=== PATIENT | female | born 1960 | race Caucasian/White ===

== ENCOUNTER 2016-11-26 20:32 | Emergency (ER) | payer BC, OTHER ==
[2016-11-26 20:43] VITALS: BP 154/73
--- NOTE | 2016-11-26 21:33 | UC ---
Complaint Female HPI - HPI Summary HPI Summary: 56 y/o female presents to the urgent care c/o burning, frequency and urgency on urination since yesterday. Pt took and old Rx of Doxycycline for 3 days about 3 weeks ago since she believe she has an UTI. However symptoms have returned. Pt denies back or flank pain, fever, SOB, chest pain, N/V/d. She has not taking any Azo to alleviate symptoms. - History Of Current Complaint Chief Complaint: UCGU Stated Complaint: URINARY Time Seen by Provider: 11/26/16 21:27 Hx Obtained From: Patient Hx Last Menstrual Period: 2008 ?: No Onset/Duration: Gradual Onset, Lasting Days, Still Present Timing: Constant, Lasting Days Severity Initially: Mild Severity Currently: Moderate Pain Intensity: 5 Pain Scale Used: 0-10 Numeric Character: Burning Aggravating Factor(s): Urination Alleviating Factor(s): Nothing Associated Signs And Symptoms: Negative: Fever, Back Pain, Vaginal Bleeding/ Discharge, Vaginal Discharge, Nausea, Vomiting(# Of Episodes =) - Risk Factors Ectopic Risk Factor: Negative Ovarian Torsion Risk Factor: Negative - Allergies/Home Medications Allergies/Adverse Reactions: Allergies Allergy/AdvReac Type Severity Reaction Status Date / Time Penicillins Allergy Intermediate Rash Verified 11/26/16 20:43 Home Medications: Home Medications Sertraline* [Zoloft*] 50 mg PO DAILY 11/26/16 [History Confirmed 11/26/16] PMH/Surg Hx/FS Hx/Imm Hx Previously Healthy: Yes Other GI/ History: overreactive blader Psychological History: Depression Other Psychological History: ADHD - Surgical History Surgical History: Yes Surgery Procedure, Year, and Place: OBLATION. Uterine ablation 2008. VARICOSE VEIN STRIPPING. ETOPIC - Family History Known Family History: Positive: None - Social History Occupation: Employed Full-time Lives: With Family Alcohol Use: None Substance Use Type: None Smoking Status (MU): Former Smoker When Did the Patient Quit Smoking/Using Tobacco: 30 YRS Review of Systems Constitutional: Negative Skin: Negative Eyes: Negative ENT: Negative Respiratory: Negative Cardiovascular: Negative Gastrointestinal: Negative Genitourinary: Dysuria, Frequency, Urgency Motor: Negative Neurovascular: Negative Musculoskeletal: Negative Neurological: Negative Psychological: Negative All Other Systems Reviewed And Are Negative: Yes Physical Exam Triage Information Reviewed: Yes Appearance: Well-Appearing, No Pain Distress, Well-Nourished, Obese Vital Signs: Initial Vital Signs Temp 99.4 F 11/26/16 20:35 Pulse 84 11/26/16 20:35 Resp 16 11/26/16 20:35 BP 154/73 11/26/16 20:35 Pulse Ox 100 11/26/16 20:35 Vital Signs Reviewed: Yes Eye Exam: Normal Eyes: Positive: Conjunctiva Clear - PERRLA, EOMI ENT Exam: Normal ENT: Positive: Normal ENT inspection, Hearing grossly normal, Pharynx normal, TMs normal Dental Exam: Normal Neck exam: Normal Neck: Positive: Supple, Nontender, No Lymphadenopathy Respiratory Exam: Normal Respiratory: Positive: Chest non-tender, Lungs clear, Normal breath sounds Cardiovascular Exam: Normal Cardiovascular: Positive: RRR, No Murmur, Pulses Normal, Brisk Capillary Refill Abdominal Exam: Normal Abdomen Description: Positive: Nontender, No Organomegaly, Soft. Negative: CVA Tenderness (R), CVA Tenderness (L) Bowel Sounds: Positive: Present Musculoskeletal Exam: Normal Musculoskeletal: Positive: Strength Intact, ROM Intact, No Edema Neurological Exam: Normal Psychological Exam: Normal Skin Exam: Normal Complaint Female Dx - Course Course Of Treatment: 56 y/o female presents to the urgent care c/o burning, frequency and urgency on urination since yesterday. Pt took and old Rx of Doxycycline for 3 days about 3 weeks ago since she believe she has an UTI. However symptoms have returned. Pt denies back or flank pain, fever, SOB, chest pain, N/V/d. She has not taking any Azo to alleviate symptoms.HX obtained. Pe performed, Medications reviewed. UA: +trace leukoesteraces, 2+ blood. Pt Rx Macrobid PO and pyridium to alleviate dysuria. Advised urine culture will be sent to the lab and if any abnormality she will receive a call from us. Advised fluid intake . Pt BP today elevated w/o HX of HTN, advised decrease salt in diet and monitor BP and if not improvement of symptoms to f/u with PCP for further treatment. Pt understood and agreed - Differential Dx/Diagnosis Differential Diagnosis/HQI/PQRI: Cervicitis, Renal Colic, Sexually Transmitted Disease, Ureteral Stone, Urinary Tract Infection Provider Diagnoses: 1- Dysuria. 2-Urinary tract infection. 3-Elevated BP w/o Hx of HTN Discharge - Discharge Plan Condition: Stable Disposition: HOME Prescriptions: Nitrofurantoin Macrocrystals* [Macrodantin*] 100 mg PO BID #9 cap Phenazopyridine TAB* [Pyridium 100 mg TAB*] 100 mg PO TID #6 tab Patient Education Materials: Urinary Tract Infection in Women (ED), Low Sodium Diet (ED) Referrals: Sajan Worrell MD [Primary Care Provider] - If Needed Additional Instructions: 1-Please take full course of antibiotic to avoid resistance. Take Pyridium PO to alleviate urinary symptoms. If you develop fever with flank pain please go immediately to the ER for further treatment. If symptoms do not improve f/u with your PCP for further management 2- Your BP is elevated today, please decrease salt in your diet, monitor your BP and if it continues to be elevated please f/u with your PCP i for further evaluation and treatment.
[2016-11-26] MEDS ORDERED: Nitrofurantoin Macrocrystals* 50 MG CAP PO ONE (21:35)
[2016-11-26] MEDS ORDERED: Phenazopyridine TAB* 100 MG PO ONE (21:37)
--- NOTE | 2016-11-29 09:36 | UC ---
Progress - Progress Note Progress Note: notify pt of (-) urine culture stop antibiotic see PMD if still symptomatic recheck here if worse
== END 2016-11-26 21:53 | disposition home or self-care (01) ==
LOC: UCCORT 20:32
DX: N39.0 Urinary tract infection, site not specified (principal); R30.0 Dysuria; R03.0 Elevated blood-pressure reading, without diagnosis of hypertension; N32.81 Overactive bladder; F32.9 Major depressive disorder, single episode, unspecified; F90.9 Attention-deficit hyperactivity disorder, unspecified type; E66.9 Obesity, unspecified; Z88.0 Allergy status to penicillin; Z87.891 Personal history of nicotine dependence
CPT/HCPCS: 81003; 87086; 99202; A9270-GY; G0463